=== PATIENT | male | born 1960 | race Caucasian/White ===

== ENCOUNTER 2021-05-25 10:05 | Emergency (ER) | payer BC, OTHER | END 2021-05-25 12:41 | disposition home or self-care (01) | LOC: CSHERS 10:05 | DX: U07.1 COVID-19 (principal); I10 Essential (primary) hypertension; E11.9 Type 2 diabetes mellitus without complications; E78.5 Hyperlipidemia, unspecified | CPT/HCPCS: 71045 ==